=== PATIENT | male | born 1950 | race Caucasian/White ===

== ENCOUNTER 2024-03-24 06:23 | Day surgery (SDC) | payer OTHER, SELFPAY | END 2024-03-24 15:08 | disposition home or self-care (01) | LOC: GI 06:23 | PROVIDERS: ATTENDING PHYSICIAN Internal Medicine Gastroenterology | DX: Z12.11 Encounter for screening for malignant neoplasm of colon (principal); D12.2 Benign neoplasm of ascending colon; K57.30 Diverticulosis of large intestine without perforation or abscess without bleeding; K64.8 Other hemorrhoids | CPT/HCPCS: 45380; 88305 ==

== ENCOUNTER → 2024-05-03 13:43 | Outpatient (REF) | payer OTHER, SELFPAY | LOC: RAD 13:43 | PROVIDERS: ATTENDING PHYSICIAN Family Medicine | DX: G89.29 Other chronic pain (principal); M54.50 Low back pain, unspecified | CPT/HCPCS: 72110; 73502 ==

== ENCOUNTER → 2025-02-05 09:36 | Outpatient (REF) | payer OTHER, SELFPAY | LOC: RST 09:36 | PROVIDERS: ATTENDING PHYSICIAN Student in an Organized Health Care Education/Training Program; FAMILY PHYSICIAN Nurse Practitioner Acute Care | DX: R13.13 Dysphagia, pharyngeal phase (principal) | CPT/HCPCS: 74230; 92611 ==

== ENCOUNTER 2025-03-10 17:41 | Emergency (ER) | payer OTHER, SELFPAY ==
[2025-03-10 17:44] VITALS: BP 196/104
[2025-03-10 18:20] VITALS: BMI 30.2
[2025-03-10 18:22] VITALS: BP 188/83
[2025-03-10 19:00] VITALS: BP 179/81
[2025-03-10] MEDS: NSS 500 IV (19:11)
[2025-03-10] MEDS: TORADOL 30 MG IV (19:11)
[2025-03-10 19:19] LABS: Urine Character Clear (Clear)
[2025-03-10 19:20] LABS: Hematocrit 46.1 % (39.0-52.0); Hemoglobin 16.0 g/dL (13.0-18.0); Mean Corp Hgb Conc. 34.7 g/dL (33.0-37.0); Mean Corpuscular Volume 85.7 fL (80.0-94.0); Nucleated Red Blood Cells % 0 % (-); Platelet Count 207 10^3/uL (130-400); Red Cell Dist. Width 12.0 % (11.5-14.5)
--- NOTE | 2025-03-10 19:21 | ED.GENMED ---
History of Present Illness
General
Chief Complaint: Back Pain
Source: patient
Exam Limitations: none
Time Seen by Provider: 03/10/25 18:18
Nursing documentation reviewed up to this point in time: agreed with
History of Present Illness
History of Present Illness:
74-year-old male presenting to the emergency department today with concerns of low back pain mainly to the right low back rating down the right leg. Went to urgent care today and was found of a swollen of blood in the urine and was sent to the ER.
Denies any history of urinary symptoms denies any numbness or weakness. Claims to have had some intermittent back pain in the past.
Review of Systems
Review of Systems
Allergies reviewed?: Yes
All Other Systems: ROS reviewed and negative except as documented in HPI and ROS
Phy Exam
Physical Exam
Physical Exam:
GENERAL: Alert , in no apparent distress
EYE: pupils equal and reactive
NECK: Supple, no significant adenopathy.
ENT: o/p clr, mmm.
CARDIAC: Regular rate and rhythm .
LUNGS: Clear breath sounds bilaterally, no acute respiratory distress, no wheezes/rales/rhonchi
ABDOMEN: Soft, without focal tenderness, no r/g, no cvat
NEUROLOGICAL: Alert and oriented, no focal neuro deficits
SKIN: Warm and dry, skin intact.
MUSCULOSKELETAL: No edema, well perfused.
PSYCH: Normal and appropriate interaction.
Course
Orders/Labs/Results
Orders:
Orders
03/10/25 18:56
0.9% Sodium Chloride 500 ml [Nss] 500 ml IV BOLUS
Ketorolac [Toradol] 30 mg IV NOW STA
03/10/25 18:57
CT Abd/pel Without Iv Or Oral Urgent
Comment:
Reason For Exam: right flank pain
03/10/25 19:10
Complete Blood Count/With Diff Urgent
Comprehensive Metabolic Panel Urgent
Urinalysis Reflex To Culture Urgent
Date Specimen was Collected: 03/10/25
Time Specimen was Collected: 19:06
Urine Microscopic Reflex Cult Urgent
03/10/25 20:29
Tizanidine [Zanaflex] 4 mg PO NOW STA
Abnormal Lab Results
03/10/25
19:10
Lymphocytes % 19.9 L %
(20.5-51.1)
Sodium 134 L mmol/L
(135-145)
Glucose 136 H mg/dl
(70-99)
ALT 57 H U/L
(0-50)
Total Protein 8.6 H g/dl
(6.3-8.2)
Urine Ketones 3+ A
(Negative)
Ur Occult Blood Reflex 2+ A
(Negative)
Urine RBC 3-6 A /HPF
(0-2)
Urine Bacteria (Reflex) Few A
(Negative)
Urine Albumin (Reflex) 2+ A
(Neg - Trace)
03/10/25 19:10
03/10/25 19:10
Vital Signs
Initial and Last Documented VS:
Initial Vital Signs
Temp Pulse Resp BP Pulse Ox
98.2 F 75 20 196/104 98
03/10/25 17:44 03/10/25 17:44 03/10/25 17:44 03/10/25 17:44 03/10/25 17:44
Last Documented Vital Signs
Temp Pulse Resp BP Pulse Ox
98.2 F 68 20 163/75 97
03/10/25 17:44 03/10/25 21:21 03/10/25 21:21 03/10/25 21:18 03/10/25 21:21
MDM/Problems Addressed
MDM/Problems Addressed:
74-year-old male presenting to the emergency department today with concerns of right sided low back pain rating to the right leg. Went to urgent care was found to have a small Gallardo blood in his urine and was sent to the ER. On arrival patient is
hypertensive otherwise vital signs are normal. No specific reproducible pain but does have some increased pain to the right low back rating down to the right hip and right leg with certain positions and movement. Here the patient had a reassuring
assessment. No signs of urinary tract infection labs unremarkable CT scan without emergent findings. Blood pressure improving here. No signs of hypertensive emergency. Stable for discharge. Return precautions given.
*Pulse Oximetry
SaO2: 96
Oxygen Mode of Delivery: Room air
Patient hypoxic: no (97)
*Critical Care Note
Total Time (30-74mins, 75-104mins- exclusive of procedures): Not Applicable
ED Attending Note
-
Portions of this chart may have been created with voice recognition software.� Occasional wrong word or��sound alike� substitutions may have occurred due to the inherent limitations of voice recognition software.
Discharge Plan
Departure
Patient Disposition: Home (Routine Discharge)
Date of Disposition: 03/10/25
Time of Disposition: 21:32
Patient with high blood pressure during this ER visit?: Yes
Condition: Good
Covid-19: Not Applicable
Discharge Problem:
Back pain
Instructions: Low Back Pain (DC), BLOOD PRESSURE
Prescriptions:
New
tizanidine [Zanaflex] 4 mg tablet
4 mg PO BID PRN (Reason: muscle spasticity) Qty: 7 0RF
Referrals:
Elena Villalba CRNP [Family Provider, General]
Nitin Bonner MD [Active, Anesthesiology] - Follow up in 5-7 days
Activity Restrictions/Additional Instructions:
You came to the emergency department today with concerns of low back pain. Here had a reassuring assessment. You did have an elevated blood pressure. Please follow closely to have this repeated and reassess. Additionally you had a small Gallardo
blood in your urine. Please follow-up for repeated urine sample in the next week. Return for any worsening, new or concerning symptoms.
Interventions
Interventions:
*Risk Screen - Suicide Last Done: 03/10/25 18:21
*General Assessment Last Done: 03/10/25 17:44
*Neglect/Abuse Screening Last Done: 03/10/25 18:21
*ED COVID-19 Vaccine History Last Done: 03/10/25 18:21
*ED Influenza Vaccine History Last Done: 03/10/25 18:21
[facility] Fall Risk Assessment Tool Last Done: 03/10/25 18:29
ED-Musculoskeletal Assessment Last Done: 03/10/25 18:29
Discharge Date and Time
Print Language: TELUGU
[2025-03-10 19:25] LABS: Urine White Cell 0-2 /HPF (0-5)
[2025-03-10 19:45] LABS: ALT (SGPT) 57 U/L (0-50); AST (SGOT) 41 U/L (17-59); Albumin 4.9 g/dl (3.5-5.0); Alkaline Phosphatase 102 U/L (38-126); Blood Urea Nitrogen 14 mg/dl (9-20); Calcium 9.5 mg/dl (8.4-10.2); Carbon Dioxide 28 mmol/L (22-30); Chloride 98 mmol/L (98-107); Estimated Creatinine Clearance 106 ml/min; Glucose 136 mg/dl (70-99); Potassium 3.9 mmol/L (3.5-5.1); Sodium 134 mmol/L (135-145); Total Protein 8.6 g/dl (6.3-8.2); eGFR > 60.00
[2025-03-10 20:31] VITALS: BP 184/91
[2025-03-10] MEDS: ZANAFLEX 4 MG PO (20:35)
[2025-03-10 21:05] VITALS: BP 181/83
[2025-03-10 21:18] VITALS: BP 163/75
== END 2025-03-10 21:45 | disposition home or self-care (01) ==
LOC: EMR 17:41
PROVIDERS: Physician Assistant; EMERGENCY PHYSICIAN Emergency Medicine; FAMILY PHYSICIAN Nurse Practitioner Acute Care
DX: M54.50 Low back pain, unspecified (principal); R03.0 Elevated blood-pressure reading, without diagnosis of hypertension
CPT/HCPCS: 99284; 96374; 96361; 74176; 80053; 81003; 81015; 85025